=== PATIENT | female | born 1960 | race Caucasian/White ===

== ENCOUNTER → 2024-01-22 | Outpatient (CLI) | payer MEDICARE ==
[2024-01-22 13:07] LABS: ALBUMIN 3.5 g/dL (3.5-5.0); BILIRUBIN,TOTAL 0.3 mg/dL (0.2-1.0); CREATININE 0.9 mg/dL (0.5-1.0); POTASSIUM 4.3 mmol/L (3.5-5.1); THYROID STIMULATING HORMONE 1.6 uIU/mL (0.36-3.74); TOTAL PROTEIN, SERUM 7.4 g/dL (6.0-8.3)
[2024-01-22 13:49] LABS: HEMOGLOBIN A1C 5.1 % (4.0-6.0)
== END | disposition home or self-care (01) ==
LOC: LAB 09:43
PROVIDERS: ATTEND Student in an Organized Health Care Education/Training Program
DX: E78.2 Mixed hyperlipidemia (principal); I70.90 Unspecified atherosclerosis; R00.0 Tachycardia, unspecified; Z79.899 Other long term (current) drug therapy
CPT/HCPCS: 36415; 80053; 80061; 83036; 84443

== ENCOUNTER → 2024-02-14 | Outpatient (CLI) | payer MEDICARE | END | disposition home or self-care (01) | LOC: EDUNIT# 15:00 → SHCH 15:10 | PROVIDERS: ATTEND Student in an Organized Health Care Education/Training Program | DX: R00.0 Tachycardia, unspecified (principal); I08.0 Rheumatic disorders of both mitral and aortic valves | CPT/HCPCS: 93306 ==

== ENCOUNTER → 2024-06-24 | Outpatient (CLI) | payer MEDICARE ==
[~2024-06-24] MED LIST: AEC81 PO; ATOR10 PO; CHOL1CAP11 PO; CLOP75TA32 PO; CYCL-309 PO; MULT-1367 PO
[2024-06-24 12:31] LABS: BASOPHILS # (AUTO) 0.11 K/uL (0.00-0.20); BASOPHILS % (AUTO) 1.6 % (0.0-5.0); EOSINOPHILS # (AUTO) 0.21 K/uL (0.00-0.70); EOSINOPHILS % (AUTO) 3.1 % (0.0-8.0); HEMATOCRIT 40.8 % (36-48); IMMATURE GRANULOCYTE ABSOLUTE 0.07 K/uL (0-1); LYMPHOCYTES # (AUTO) 2.5 K/uL (1.0-4.8); LYMPHOCYTES % (AUTO) 37.2 % (21.0-51.0); MEAN CORPUSCULAR HEMOGLOBIN 32.4 pg (27.0-33.0); MEAN CORPUSCULAR HGB CONC 31.6 g/dL (32.0-36.0); MEAN CORPUSCULAR VOLUME 102.5 fL (79-99); MONOCYTES # (AUTO) 0.6 K/uL (0.1-1.0); MONOCYTES % (AUTO) 8.3 % (3.0-13.0); NEUTROPHILS # (AUTO) 3.3 K/uL (1.8-7.7); NEUTROPHILS % (AUTO) 48.8 % (40.0-77.0); PLATELET COUNT (AUTO) 365 K/uL (130-400); RED BLOOD CELL COUNT(AUTO) 3.98 MIL/uL (4.00-5.50); WHITE BLOOD COUNT (AUTO) 6.8 K/uL (4.8-10.8)
[2024-06-24 12:42] LABS: HEMOGLOBIN A1C 5.1 % (4.0-6.0)
[2024-06-24 12:58] LABS: ALBUMIN 3.3 g/dL (3.5-5.0); BILIRUBIN,TOTAL 0.2 mg/dL (0.2-1.0); POTASSIUM 4.4 mmol/L (3.5-5.1); TOTAL PROTEIN, SERUM 6.8 g/dL (6.0-8.3)
== END | disposition home or self-care (01) ==
LOC: LAB 11:04
PROVIDERS: ATTEND Student in an Organized Health Care Education/Training Program
DX: E78.2 Mixed hyperlipidemia (principal); I25.83 Coronary atherosclerosis due to lipid rich plaque; Z79.899 Other long term (current) drug therapy
CPT/HCPCS: 36415; 80053; 80061; 83036; 85025

== ENCOUNTER → 2024-09-22 | Outpatient (CLI) | payer MEDICARE ==
--- NOTE | 2024-09-23 09:20 | HMCSR ---
APPROVED REPORT EXAM: Two-dimensional and M-mode echocardiogram with Doppler and color Doppler. 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 Surgery/Intervention CABG: Date: Apr 2024 2D Dimensions RVDd2.7 cmLVEF(%)53.5 (>50%)LVED Vol(simp.)87.0 mL IVSd0.9 (0.7-1.1cm)FS(%)27 %LVES Vol(simp.)45.0 mL LVDd4.5 (3.8-5.6cm)Ao Root(2D)3.0 (2.0-3.7cm)LVEF(%, simp.)49 % PWd0.8 (0.7-1.1cm)LVOT diam2.0 (1.8-2.4cm)LA ESV INDEX (BP)21.83 mL/m2 LVDs3.2 (2.5-4.0cm)IVC diam1.6 cm Aortic Valve AoV Vmax1.3 m/Rk Peak GR6.4 mmHgLVOT Vmax0.8 m/s AoV VTI0.3 mAo Mean GR3.4 mmHgLVOT VTI0.18 m DEREK (VMAX)2.1 cm2AVA (VTI) 2.1 cm2 Mitral Valve MV E Vmax68.0 cm/sDECEL Vypv500 ms MV A Vmax67.5 cm/sP 1/2 T59 ms E/A ratio1.0MVA (PHT)3.7 cm2 MR Max PG79 mmHg TDI E/E' Medial9.5E/E' Lateral9.1 Pulmonary Valve PV Vmax0.7 m/sPV VTI0.14 mPV Mean GR1 mmHg PV Peak GR2.0 mmHg Tricuspid Valve TR Vmax1.9 m/sRAP (EST) 3 voWfEVRX33.4 mmHg TR Peak GR14.4 mmHg Left Ventricle Left ventricular cavity size is normal. There is normal LV segmental wall motion. There is normal lef t ventricular wall thickness. LVEF is borderline 50%. Left ventricular filling pattern is normal for age. Right Ventricle The right ventricle is normal size. Right ventricular systolic function is mildly reduced. Atria The left atrium size is normal. The right atrium size is normal. Aortic Valve Aortic valve is trileaflet. Aortic valve leaflets are sclerotic but open well. Trace aortic regurgita tion. There is no aortic valvular stenosis. Mitral Valve The mitral valve is mildly thickened. Mitral regurgitation is trace There is no mitral valve stenosis . Tricuspid Valve The tricuspid valve leaflets appear normal. There is trace tricuspid regurgitation. Pulmonic Valve Pulmonic valve is not well visualized. Great Vessels The aortic root is normal in size. The IVC is normal in size and collapses >50% with inspiration. Pericardium No pericardial effusion. Other Information Quality : Good Conclusion Left ventricular cavity size is normal. LVEF is borderline 50% with normal LV segmental wall motion. Left ventricular filling pattern is normal for age. Right ventricular systolic function is mildly reduced by TAPSE. Both atria are normal in size. No hemodynamically significant valvular abnormalities. No pericardial effusion.
== END | disposition home or self-care (01) ==
LOC: SHCH 09:27
PROVIDERS: ATTEND Student in an Organized Health Care Education/Training Program
DX: I08.0 Rheumatic disorders of both mitral and aortic valves (principal); I25.10 Atherosclerotic heart disease of native coronary artery without angina pectoris
CPT/HCPCS: 93306

== ENCOUNTER → 2024-09-29 | Outpatient (CLI) | payer MEDICARE ==
[2024-09-29 12:43] LABS: ALBUMIN 3.5 g/dL (3.5-5.0); BILIRUBIN,TOTAL 0.3 mg/dL (0.2-1.0); CREATININE 0.9 mg/dL (0.5-1.0); POTASSIUM 4.4 mmol/L (3.5-5.1); TOTAL PROTEIN, SERUM 7.2 g/dL (6.0-8.3)
[2024-09-29 13:11] LABS: HEMOGLOBIN A1C 5.3 % (4.0-6.0)
== END | disposition home or self-care (01) ==
LOC: LAB 09:38
PROVIDERS: ATTEND Student in an Organized Health Care Education/Training Program
DX: I70.90 Unspecified atherosclerosis (principal); Z79.899 Other long term (current) drug therapy
CPT/HCPCS: 36415; 80053; 80061; 83036

== ENCOUNTER → 2025-02-18 | Outpatient (CLI) | payer MEDICARE ==
--- NOTE | 2025-03-01 15:01 | HMCIMG ---
CLINICAL INDICATION: Asymptomatic menopausal state COMPARISON: None available TECHNIQUE: Bone densitometry is performed of the lumbar spine and left hip. FINDINGS: Total BMD of lumbar spine is 0.851 g/cm2 with a T-score of -1.8 and Z-score is 0.1. Total BMD of left hip is 0.703 g/cm2 with a T-score of -2.0 and Z-score is -0.7. FRAX SCORE: The 10 year fracture risk for a major osteoporotic fracture and hip fracture 13% IMPRESSION: 1. Osteopenia of lumbar spine and left hip 2. I would recommend follow-up in 13 months World Health Organization criteria for BMD interpretation classify patients as Normal (T-score at or above -1.0), Osteopenic (T-score between -1.0 and -2.5), or Osteoporotic (T-score at or below -2.5). FRAX SCORE: A. All treatment decisions require clinical judgment and consideration of individual patient factors, including patient preferences, comorbidities, previous drug use, risk factors not captured in the FRAX model (e.g., frailty, falls, vitamin D deficiency, increased bone turnover, interval significant decline in bone density) and possible [id number]-estimation of fracture risk by FRAX. B. In addition, the NOF Guide recommends that FDA-approved medical therapies be considered in postmenopausal women and men age greater than or equal to 50 years with a: i. Hip or vertebral (clinical or morphometric) fracture. ii. T-score of less than or equal to -2.5 at the spine or hip. iii. Ten-year fracture probability by FRAX of greater than or equal to 3% for hip fracture of greater than or equal to 20% for major osteoporotic fracture.
--- NOTE | 2025-03-01 15:52 | HMCIMG ---
DIGITAL BILATERAL SCREENING MAMMOGRAM Technique: The digital mammographic examination of both breasts in craniocaudal and mediolateral oblique views along with CAD was obtained. History: This is a 65 years year-old female 4, para3 Ab1. Patient has no family history of breast cancer. Patient has no complaint Reference:Baseline mammogram patient does not recall. Breast composition: Breast composition C: The breasts are heterogeneously dense, which may obscure small masses. Finding: The digital mammographic examination of both breasts in craniocaudal and mediolateral oblique view along with CAD demonstrates both breasts to be moderately heterogeneously dense breasts.. There is no evidence of any dendritic mass, cluster microcalcification or architectural distortion. The retromammary fat appears to be normal. IMPRESSION: NO RADIOGRAPHIC EVIDENCE OF MALIGNANT CHANGES. WE WOULD RECOMMEND ANNUAL FOLLOW UP WITH TOMOSYNTHESIS UNLESS OTHERWISE CLINICALLY INDICATED. FINAL ASSESSMENT: ACR: BI-RAD- 2. Benign: Also a negative assessment; finding(s) benign abnormalities. Management: Routine mammography screening. Likelihood of Cancer: Essentially 0% likelihood of malignancy. NOTE: IF A WORK-UP OF THIS PATIENT LEADS TO A BIOPSY, PLEASE FORWARD A COPY OF THE PATHOLOGY REPORT TO OUR OFFICE REQUIRED BY [employer] APRIL 21, 1994. A NEGATIVE MAMMOGRAM SHOULD NOT PRECLUDE BIOPSY OF A CLINICALLY PALPABLE SUSPICIOUS MASS, 10% OF BREAST CANCERS ARE MAMMOGRAPHICALLY OCCULT. THIS MAMMOGRAPHY FACILITY IS FULLY ACCREDITED BY THE FOOD AND DRUG [employer]RATION (FDA). THANK YOU FOR THIS REFERRAL.
== END | disposition home or self-care (01) ==
LOC: RAH 10:28
PROVIDERS: ATTEND Internal Medicine
DX: Z12.31 Encounter for screening mammogram for malignant neoplasm of breast (principal); M85.89 Other specified disorders of bone density and structure, multiple sites; Z78.0 Asymptomatic menopausal state
CPT/HCPCS: 77067; 77080

== ENCOUNTER → 2025-06-02 | Outpatient (CLI) | payer MEDICARE ==
[~2025-06-02] MED LIST changes: -ATOR10 PO; +ATOR40TA69 PO; +IOHEXOL 350 MG/ML 100ML INFUS..BTL IV ONE; +METO-409 PO; +PRED10TA3 PO; +PRED20TA3 PO; +TRAM-543 PO
--- NOTE | 2025-06-03 15:39 | HMCIMG ---
EXAMINATION: CT ANGIOGRAM OF THE CHEST. CLINICAL HISTORY: Aortic aneurysm of unspecified site, without rupture. COMPARISON: Prior CTA chest on 05/10/2025. TECHNIQUE: Axial CT images of the chest were obtained following the intravenous administration of nonionic contrast. Sagittal and coronal reformatted images were also significant for interpretation. FINDINGS: Central airways are patent. Paraseptal emphysema in the left upper lobe. There is no suspicious pulmonary nodule or focal airspace disease. There is no pleural or pericardial effusion. Heart size is within normal limits. Stent present along the arch of aorta and descending thoracic aorta. No stenosis/extravasation. The thoracic as well as the visualized portion of the abdominal aorta and its branches demonstrate normal course and caliber without evidence of aneurysmal dilatation. The ascending aorta measures 3.4 cm at its widest segment with no associated dissection. There are no filling defects within the main, right, and left pulmonary arteries as well as the visualized second- and third-order branches. The main pulmonary artery is normal in size. There is no lymphadenopathy within the chest. There is no focal thyroid abnormality. There is no acute or suspicious osseous abnormality. IMPRESSION: Stent present along the arch of aorta and desceding thoracic aorta. No stenosis/extravasation. This is stable when compared with the prior exam. No CT evidence for pulmonary embolism. Paraseptal emphysema in the left upper lobe. No pulmonary infiltrates or pleural effusions. EXAMINATION: CT ANGIOGRAM OF ABDOMEN AND PELVISw. CLINICAL HISTORY: Aortic aneurysm of unspecified site. COMPARISON: Prior CTA chest on 05/10/2025. TECHNIQUE: MDCT angiogram of the abdominal aortic vessels was performed after administration of intravenous contrast. FINDINGS: Abdominal aorta is normal in size and caliber. There are atheromatous wall calcification of the aorta and iliac arteries. 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 No stenosis. The abdominal aortic branches, viz., the celiac and superior mesenteric arteries, are normal in caliber. There is no stenosis or occlusion. The angle between superior mesenteric artery and aorta is normal. Bilateral renal arteries are normal in caliber. There is no stenosis or occlusion. The inferior mesenteric arteries are normal in caliber. Bifurcation morphology is normal. There is no stenosis or occlusion. The bilateral common iliac arteries are normal in caliber. No stenosis or occlusion. The bilateral external iliac arteries are normal in caliber. Their branches are normal, and the bilateral internal iliac arteries are normal; there is no stenosis or occlusion. Within the abdomen and pelvis, liver is normal in caliber with uniform decreased density; surgically absent gallbladder; duplex moiety of the left kidney; pancreas, spleen, adrenal glands, and right kidney are within normal limits; there are colonic diverticula.; rest of the bowel loops are normal in caliber without evidence of obstruction, ileus, or bowel wall thickening, and the appendix is normal; and urinary bladder, pelvic organs appear normal in caliber. IMPRESSION: Atheromatous wall calcification of the aorta and iliac arteries. 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 No stenosis. This is stable when compared with the prior exam. No acute abdominal or pelvic pathology. /[place]
== END | disposition home or self-care (01) ==
LOC: RAH 09:50
PROVIDERS: ATTEND Student in an Organized Health Care Education/Training Program
DX: I71.02 Dissection of abdominal aorta (principal); I71.9 Aortic aneurysm of unspecified site, without rupture; I70.0 Atherosclerosis of aorta; I70.8 Atherosclerosis of other arteries; J43.8 Other emphysema
CPT/HCPCS: 74174; 71275; Q9967